=== PATIENT | male | born 1970 | race Caucasian/White ===

== ENCOUNTER 2017-01-14 19:19 | Inpatient (IN) | payer OTHER ==
--- NOTE | ~2017-01-14 | PN ---
Unit #: [id number] #: [id number] Patient: JINA LEBRON [id number] [facility] [address] [place] [address] [id number] I MR#: [id number] NAME: JINA LEBRON. ROOM: [facility] Age: 46 Sex: M Admission Date: 01/14/2017 : 1970 Attending Physician: Dario Villagomez M.D. Admitting Physician: Dario Villagomez M.D. Primary Care Physician: Venkat Guillen PROGRESS NOTES DATE 01/15/2017 DISCUSSION Mr. Jina Lebron is a 46-year-old male, seen on 01/15/2017. The patient interviewed, chart reviewed, and obtained information from the nursing staff. The patient was compliant and cooperative. Mood sad and dysphoric, flat affect, withdrawn, isolative, anxious, reported having restlessness of his legs, trouble sleeping, mood lability. REVIEW OF SYSTEMS Complete review of systems unremarkable. MENTAL STATUS EXAMINATION General appearance: Patient casually dressed. Attention span and concentration, fair. Oriented to place and person. Mood and affect, sad and dysphoric. Speech, monotone. Thought process, concrete. Association, the patient denied any thoughts of harming self or others but withdrawn, isolative, flat affect. Recent and remote memory, poor. Insight and judgment, poor. DIAGNOSES 1. Polysubstance abuse. 2. Mood disorder, NOS. 3. Rule out major depressive disorder. ASSESSMENT/PLAN Advised to start the patient on Celexa 20 mg daily and trazodone 100 mg at bedtime, Vistaril 25 mg three times a day, Requip 1 mg twice daily. We will closely monitor the patient's mood and behavior, if needed consider further adjustment of medication. Dictated by... Venkat Lora/thuy TD: 01/16/2017 07:26 JOB #: [id number] Unit #: [id number] #: [id number] Patient: JINA LEBRON PROGRESS NOTES X Dario Villagomez MD PROGRESS NOTE
--- NOTE | ~2017-01-14 | HP ---
Unit #: [id number] #: [id number] Patient: JINA BURGOS [id number] [facility] [address] [place] [address] [id number] I MR#: [id number] NAME: JINA BURGOS. ROOM: [facility] Age: 46 Sex: M Admission Date: 01/14/2017 : 1970 Attending Physician: Dario Villagomez M.D. Admitting Physician: Dario Villagomez M.D. Primary Care Physician: Rahul Barahona M.D. HISTORY AND PHYSICAL HISTORY OF PRESENT ILLNESS Jina is a 46-year-old male admitted on 01/14/[address] [place] [address] for detox from benzos and heroin as well as suicidal ideation. PAST MEDICAL HISTORY 1. Chronic obstructive pulmonary disease 2. Hypertension and spondylosis. PAST SURGICAL HISTORY None documented. SOCIAL HISTORY Reports daily use of heroin and Xanax. Smokes one pack of cigarettes daily and occasional alcohol use. He is currently and homeless. FAMILY HISTORY Noncontributory. REVIEW OF SYSTEMS CONSTITUTIONAL: No fever or chills. HEENT: Denies any sore throat, ear pain or runny nose. CARDIOVASCULAR: Denies chest pain, irregular heart rhythm or palpitations. CHEST: Denies shortness of breath or cough. No hemoptysis. GASTROINTESTINAL: Denies nausea, vomiting, diarrhea or chronic constipation. ENDOCRINE: Denies history of increased thirst or urination. No recent significant weight loss or gain. GENITOURINARY: Denies dysuria, frequency, or hematuria. SKIN: Denies any rashes. HEMATOLOGIC: Denies history of increased bleeding or bruising. MUSCULOSKELETAL: Denies any hot, swollen joints. No generalized muscle pain. NEUROLOGIC: Denies problems with vision or speech. No frequent, severe headaches. No numbness, tingling or weakness in any extremities. Denies loss of bladder or bowel control. CURRENT MEDICATIONS Lisinopril and Proventil ALLERGIES No known drug allergies. Unit #: [id number] #: [id number] Patient: JINA BURGOS PHYSICAL EXAMINATION GENERAL: Alert, oriented, in no acute distress. VITAL SIGNS: Blood pressure 158/90, heart rate 81, temperature 98.0. HEIGHT: 5 foot 8 inches. WEIGHT: 150 pounds. SKIN: Warm and dry without rash or lesion. HEENT: Normocephalic. TMs not viewed. Oral and nasal passages clear. Conjunctivae clear. PERRLA. EOMs intact. NECK: Supple without lymphadenopathy or thyromegaly. HEART: Regular rate and rhythm without murmur. LUNGS: Clear. ABDOMEN: Soft, nontender, without masses or hepatosplenomegaly. : Not done. EXTREMITIES: No evidence of cyanosis, clubbing or edema. Moves all without focal deficit. NEUROLOGICAL: Grossly within normal limits. Cranial Nerves: II: Visual melendez are intact. III, IV AND : Extraocular movements are intact. Pupils are equal, round and reactive to light. V: Facial sensation is grossly normal. VII: Facial movements and expression are normal. VIII: Auditory acuity grossly intact. IX, X: Uvula is midline. Phonation is normal. XI: Patient shrugs shoulders and turns head normally. XII: Tongue protrudes in the midline. Sensory and Motor Function: Sensory and motor sensation is grossly normal. Motor: moves all extremities well. Coordination: Gait is normal. Deep Tendon Reflexes: Intact. IMPRESSION 1. Psychiatric admission 2. Spondylosis 3. Hypertension 4. Chronic obstructive pulmonary disease RECOMMENDATIONS Psychiatric, per psychiatrist. MEDICAL: I see no contraindications to participating in facility's activities. MEDICAL PROGNOSIS Good. MEDICAL CONDITION Stable. Dictated by... Leigh Ann Gonzalez/viji TD: 01/16/2017 00:08 JOB #: [id number] Unit #: [id number] #: [id number] Patient: JINA BURGOS HISTORY AND PHYSICAL X STERLING BOURGEOIS APRN HISTORY AND PHYSICAL
--- NOTE | ~2017-01-14 | PN ---
Unit #: [id number] #: [id number] Patient: JINA BURGOS [id number] [facility] [address] [place] [address] [id number] I MR#: [id number] NAME: JINA BURGOS. ROOM: [facility] Age: 46 Sex: M Admission Date: 01/14/2017 : 1970 Attending Physician: Dario Villagomez M.D. Admitting Physician: Dario Villagomez M.D. Primary Care Physician: Venkat Guillen PROGRESS NOTES DATE OF SERVICE: 01/16/2017 DISCUSSION Mr. Jina Burgos is a 46-year-old male, seen on 01/16/2017. The patient interviewed, chart reviewed, and obtained information from nursing staff. The patient reported having trouble sleeping, withdrawn, isolative, guarded, flat affect. The patient reported unable to sleep last night. The patient's vital signs; temperature 98.1, pulse 81, and blood pressure 142/87. The patient is currently on detox protocol but denied any thoughts of harming self or others. Complete review of systems unremarkable. MENTAL STATUS EXAMINATION General appearance, the patient dressed casually. Attention span and concentration, fair. Oriented in place and person. Mood and affect, sad and dysphoric. Speech, monotone. Thought process, concrete. The patient denied any thoughts of harming self or others, but guarded and paranoid. Recent and remote memory, poor. Insight and judgment, poor. DIAGNOSES 1. Mood disorder, not otherwise specified. 2. Opioid use disorder, severe. 3. Sedative-hypnotic use disorder. ASSESSMENT/PLAN Recommending at this time to continue with current medication with a plan to increase trazodone to 200 mg at bedtime. If needed, consider further adjustment of medication. Dictated by... Dario Villagomez M.D. FLORIDALMA/nathaniel TD: 01/16/2017 19:14 JOB #: [id number] Unit #: [id number] #: [id number] Patient: JINA BURGOS PROGRESS NOTES X Dario Villagomez MD PROGRESS NOTE
--- NOTE | ~2017-01-14 | PN ---
Unit #: [id number] #: [id number] Patient: JINA LEBRON [id number] [facility] [address] [place] [address] [id number] MR#: [id number] NAME: JINA LEBRON. ROOM: [facility] Age: 46 Sex: M Admission Date: 01/14/2017 : 1970 Attending Physician: Dario Villagomez M.D. Admitting Physician: Dario Villagomez M.D. Primary Care Physician: Venkat Guillen PROGRESS NOTES DATE OF SERVICE: 01/17/2017 DISCUSSION Jina Lebron is a 46-year-old male, seen on 01/17/2017. The patient interviewed, chart reviewed, and obtained information from nursing staff. The patient was compliant and cooperative. Mood was sad, dysphoric, flat affect, guarded. The patient requested for Motrin for pain. The patient continues to be sad, dysphoric, withdrawn, isolative, flat affect. Complete review of systems unremarkable. MENTAL STATUS EXAMINATION General appearance, the patient dressed casually. Attention span and concentration, fair. Oriented in time, place, and person. Mood and affect were labile. Speech, regular rate. Thought process, goal directed. The patient denied any thoughts of harming self or others or any psychotic symptom. Recent and remote memory, poor. Insight and judgment, poor. DIAGNOSES 1. Polysubstance abuse. 2. Mood disorder, not otherwise specified. ASSESSMENT AND PLAN Advised to continue with current medication and therapeutic protocol. We will monitor response to medication and make further adjustment of medication. Dictated by... Venkat Lora/nathaniel TD: 01/17/2017 19:02 JOB #: [id number] Unit #: [id number] #: [id number] Patient: JINA LEBRON PROGRESS NOTES X Dario Villagomez MD PROGRESS NOTE
--- NOTE | ~2017-01-14 | PA ---
Unit #: [id number] #: [id number] Patient: JINA LEBRON [id number] [facility] [address] [place] [address] [id number] I MR#: [id number] NAME: JINA LEBRON. ROOM: [facility] Age: 46 Sex: M Admission Date: 01/14/2017 : 1970 Date of Assessment: 01/15/2017 Attending Physician: Dario Villagomez M.D. Admitting Physician: Dario Villagomez M.D. Primary Care Physician: Rahul Barahona M.D. PSYCHIATRIC ASSESSMENT INFORMANTS The patient reliability, fair informant and chart reliability, good. CHIEF COMPLAINT Substance abuse and depression. HISTORY OF PRESENT ILLNESS Mr. Jina Lebron is a 46-year-old male, presented with the above-mentioned complaint. The patient reports he is currently homeless, has a . The patient reported using multiple drugs and substances. Reported feeling sad, depressed, using 1 g of heroin IV, addiction to benzos, Xanax, and Klonopin 2 to 3 times a week. The patient currently endorses mild withdrawal symptoms. The patient's COWS 9, CIWA score 3. The patient reported that he is suicidal and thoughts of overdosing on heroin. The patient denied any homicidal ideation or psychotic symptom. Needing inpatient admission at this time for psychiatric stabilization. PAST PSYCHIATRIC HISTORY Remarkable for history of outpatient treatment, details unknown at this time. FAMILY HISTORY AND SOCIAL HISTORY The patient currently homeless. Family psychiatric illness unremarkable. MEDICAL HISTORY Remarkable for hypertension, COPD, chronic back pain, and emphysema. MEDICATIONS The patient is on lisinopril, albuterol, and medication for depression, details unknown at this time. ALLERGIES No known drug allergies. SUBSTANCE ABUSE HISTORY The patient uses tobacco, age of onset 8; alcohol, age of onset 8; marijuana, age of onset 6; crack cocaine, age of onset 18; opioid, age of onset 28; and prescription medication, age of onset 28. The patient reported history of blackouts, withdrawal symptom, and IV drug use. Currently, having hot and cold flash, restlessness, anxiety, abdominal cramping, muscle cramping, diaphoresis, diarrhea, depressed mood, irritability, nervousness, poor appetite, poor concentration, Unit #: [id number] #: [id number] Patient: JINA LEBRON restlessness, rhinorrhea, and sleep problem. REVIEW OF SYSTEMS HEENT: Eyes, clear. Ears, nose, mouth, and throat; clear. CARDIOVASCULAR: Unremarkable. RESPIRATORY: Unremarkable. GI: Unremarkable. : Unremarkable. SKIN: Unremarkable. LYMPH NODE: Unremarkable. NEUROLOGIC: Unremarkable. ENDOCRINE: Unremarkable. HEMATOLOGIC: Unremarkable. ALLERGIC/IMMUNOLOGIC: Unremarkable. MUSCULOSKELETAL: Muscle strength and tone, no atrophy or abnormal movement. Gait normal. MENTAL STATUS EXAMINATION CONSTITUTIONAL: Measurement of vital signs; temperature 98.0, heart rate 81, respiratory rate 18, blood pressure 158/90, height 5 feet 8 inches, and weight 150 pounds. GENERAL APPEARANCE: The patient dressed casually. The patient did not show any facial deformity. MUSCULOSKELETAL: Please see above. PSYCHIATRIC EXAMINATION Description of speech; regular rate, normal volume, and normal articulation. Description of thought process, goal directed. Description of association, intact. Description of abnormal psychotic thinking; denied any hallucination or delusions, but depression, suicidal ideation, and substance abuse. Denied any homicidal ideation. Description of the patient's judgment: Concerning everyday activity, poor. Social situation, poor. Concerning psychiatric condition, poor. Complete mental status examination; oriented in time, place, and person. Recent and remote memory, poor. Attention span and concentration, fair. Language, able to name object and repeat phrases. Fund of knowledge, aware of current event and passive vocabulary intact. Mood and affect, sad and dysphoric. Insight and judgment, fair to poor. ASSETS AND LIABILITIES Assets, the patient is articulate and able to take care of his ADL. Liability, history of depression and substance abuse. ADMITTING DIAGNOSES Psychiatric: Major depressive disorder, recurrent, severe, F33.2; opioid use disorder, severe, F11.20; and sedative hypnotic use disorder, F13.20. Secondary diagnosis: Deferred. Medical diagnoses: Hypertension, chronic obstructive pulmonary disease, chronic back pain, and emphysema. Stressors: Psychosocial stressors. PSYCHIATRIC PLAN AND TREATMENT GOAL AND DISCHARGE PLAN 1. Advised to admit the patient on the inpatient unit. Provide safe, supportive, and structured environment. Unit #: [id number] #: [id number] Patient: JINA LEBRON 2. Ordered labs; CBC, CMP, UA, and UDS. 3. Precaution for self-harm and detox monitoring. 4. The patient started on detox protocol. The patient to continue with home medication. If needed, consider further adjustment of medication. The patient to continue with Thorazine 100 mg at bedtime, Requip 1 mg b.i.d., Vistaril 25 mg t.i.d., and Neurontin 200 mg t.i.d. The patient to attend all the programing, group therapy, individual therapy, and medication management. TREATMENT GOAL To attain euthymic mood, gain insight into his problem, and learn coping skills. DISCHARGE PLAN Plan to stabilize the patient and consider followup in outpatient program. ESTIMATED LENGTH OF STAY 5 days. Dictated by... Venkat Lora/nathaniel TD: 01/15/2017 17:25 JOB #: [id number] PSYCHIATRIC ASSESSMENT X Dario Villagomez MD X PSYCHIATRIC ASSESSMENT
--- NOTE | ~2017-01-14 | DS ---
Unit #: [id number] #: [id number] Patient: JINA BURGOS [id number] [facility] [address] [place] [address] [id number] MR#: [id number] NAME: JINA BURGOS. ROOM: [facility] Age: 46 Sex: M Admission Date: 01/14/2017 : 1970 Discharge Date: 01/18/2017 Attending Physician: Dario Villagomez M.D. Primary Care Physician: Rahul Barahona M.D. DISCHARGE SUMMARY REASON FOR ADMISSION Substance abuse. DIAGNOSTIC STUDIES LABORATORY RESULTS: Remarkable for urine drug screen positive for opioid. HOSPITAL COURSE The patient was admitted to inpatient unit on 01/14/2017 and discharged on 01/18/2017. The patient was treated on the inpatient unit with chemical dependency group, expressive therapy, medication management, psychotherapy, psychoeducation. The patient responded well with the above modalities of treatment and detox protocol. Subsequently, the patient was discharged with a plan to follow up in outpatient program. DISCHARGE MEDICATIONS Lisinopril 10 mg daily for hypertension, Proventil inhaler 2 puffs 4 hours p.r.n. for shortness of air. DISCHARGE DIAGNOSES Psychiatric: 1. Mood disorder, not otherwise specified, F32.9. 2. Opioid use disorder, severe, F11.20. 3. Sedative hypnotic use disorder, F13.20. Secondary diagnosis: Deferred. Medical diagnoses: Hypertension, chronic obstructive pulmonary disease, chronic pain, emphysema. Stressors: Psychosocial stressors. DISCHARGE INSTRUCTIONS The patient to follow up in outpatient clinic as per psychosocial rehabilitation counselor. CONDITION ON DISCHARGE The patient was pleasant and cooperative. Denied any psychotic symptom or any suicidal ideation. PROGNOSIS Guarded. DIET AND ACTIVITY As tolerated. Unit #: [id number] #: [id number] Patient: JINA BURGOS Dictated by... Venkat Lora/nathaniel TD: 01/19/2017 06:51 JOB #: [id number] DISCHARGE SUMMARY X Dario Villagomez MD X DISCHARGE SUMMARY
[~2017-01-14 19:19] MED LIST: MUCINEX DM1 TAB.SR . PO; PERCOCET5/325 PO; ULTRAM PO
[2017-01-15 11:14] LABS: BASOPHIL# 0.1 X10e3 (0-0.3); BASOPHIL% 0.9 % (0-2.5); EOSINOPHIL# 0.1 X10e3 (0-0.7); EOSINOPHIL% 1.1 % (0.0-7.0); HEMATOCRIT 42.5 % (38.0-50.0); HEMOGLOBIN 13.8 gm/dL (13.0-16.0); LYMPHOCYTE# 1.5 X10e3 (1.0-3.5); LYMPHOCYTE% 22.1 % (17.0-45.0); MEAN CELL VOLUME 92.4 FL (83-96); MEAN CORPUSCULAR HEMOGLOBIN 30.1 PG (28-34); MEAN CORPUSCULAR HGB CONC 32.5 g/dL (30-36); MONOCYTE# 0.9 X10e3 (0-1.0); MONOCYTE% 12.4 % (3.0-12.0); NEUTROPHIL# 4.4 X10e3 (1.5-7.1); NEUTROPHIL% 63.5 % (40-75); PLATELET COUNT 224 X10e3 (140-420); RED CELL DISTRIBUTION WIDTH 13.8 % (11.0-15.5); WHITE BLOOD COUNT 6.9 X10e3 (4.0-10.5)
[2017-01-15 11:16] LABS: DIFF IND NO
[2017-01-15 11:30] LABS: URINE APPEARANCE CLEAR; URINE BILIRUBIN NEG (NEG); URINE BLOOD NEG (NEG); URINE COLOR YELLOW; URINE GLUCOSE NEG (NEG); URINE KETONE NEG (NEG); URINE LEUKOCYTE ESTERASE NEG (NEG); URINE NITRATE NEG (NEG); URINE PH 6.5 (5-8); URINE PROTEIN NEG (NEG); URINE SPECIFIC GRAVITY 1.021 (1.003-1.035)
[2017-01-15 11:56] LABS: THYROID STIMULATING HORMONE 0.38 uIU/ml (0.34-5.60)
[2017-01-15 11:57] LABS: ALBUMIN SERUM 3.7 g/dL (3.5-5.0); ALKALINE PHOSPHATASE 73 U/L (32-92); ALT (SGPT) 24 U/L (10-40); AST (SGOT) 23 U/L (10-42); BILIRUBIN,TOTAL 0.5 mg/dL (0.2-2.0); BLOOD UREA NITROGEN 10 mg/dL (9-23); BUN/CREATININE RATIO 14.28; CALCIUM SERUM 9.2 mg/dL (8.4-10.2); CARBON DIOXIDE 25 mmol/L (22-31); CHLORIDE 106 mmol/L (100-111); CREATININE SERUM 0.7 mg/dL (0.6-1.4); GLOM FILT RATE Estimated ABOVE60 mL/min (>60); GLUCOSE FASTING 113 mg/dL (70-110); POTASSIUM 4.4 mmol/L (3.5-5.1); PROTEIN TOTAL SERUM 6.4 g/dL (6.0-8.3); SODIUM 140 mmol/L (135-145)
[2017-01-15 12:01] LABS: AMPHETAMINE NEG (NEG); BARBITURATES NEG (NEG); BENZODIAZEPINES NEG (NEG); COCAINE NEG (NEG); MARIJUANA NEG (NEG); OPIATES POS (NEG); TRICYCLIC ANTIDEPRESSANTS NEG (NEG); U METHADONE NEG (NEG)
[2017-01-15 12:03] LABS: FREE THYROXIN (T4) 0.96 ng/dL (0.58-1.64)
== END 2017-01-18 09:55 | DRG 897 ==
LOC: P2S 19:19 → POF 01-16 14:07 → P2S 01-16 14:10
PROVIDERS: Psychiatry & Neurology Psychiatry
PROC: HZ2ZZZZ Detoxification Services for Substance Abuse Treatment (ICD-10-PCS; principal; 2017-01-14)
DX: F11.20 Opioid dependence, uncomplicated (principal); R45.851 Suicidal ideations; F33.2 Major depressive disorder, recurrent severe without psychotic features; F13.20 Sedative, hypnotic or anxiolytic dependence, uncomplicated; J44.9 Chronic obstructive pulmonary disease, unspecified; I10 Essential (primary) hypertension; F17.210 Nicotine dependence, cigarettes, uncomplicated; Z59.0 Homelessness; M47.9 Spondylosis, unspecified; F39 Unspecified mood [affective] disorder; G89.29 Other chronic pain
CPT/HCPCS: 80053; 80307; 81003; 84439; 84443; 85025; 86592

== ENCOUNTER 2017-03-09 08:30 | Inpatient (IN) | payer OTHER ==
--- NOTE | ~2017-03-09 | CO ---
Unit #: [id number] #: [id number] Patient: JINA BURGOS [id number] [address] [address] [id number] MR#: [id number] NAME: JINA BURGOS. ROOM: [facility] Age: 47 Sex: M Admission Date: 03/09/2017 : 1970 Attending Physician: Aleta Moore M.D. Primary Care Physician: Rahul Barahona M.D. Consultation Date: 03/09/2017 CONSULTATION REPORT REASON FOR CONSULTATION ICU management. HISTORY OF PRESENT ILLNESS This is a very pleasant 47-year-old with a past medical history significant for chronic obstructive pulmonary disease, extensive smoking and a history of IV drug abuse with heroin. The patient was brought to the emergency room with progressive shortness of breath and cough, sometimes productive of yellowish sputum for the last few days. Apparently the patient was recently discharged from detox on 01/18/2017 with substance abuse and mood disorder. Per record, the patient injected IV heroin yesterday times two in the afternoon. The patient smokes one pack per day for the last 35 years. He takes inhalers at home, but no oxygen. He is willing to quit smoking, as he stated. PAST MEDICAL HISTORY 1. Chronic obstructive pulmonary disease. 2. Hypertension. 3. Polysubstance abuse. PAST SURGICAL HISTORY 1. Tonsillectomy. 2. Left shoulder surgery. SOCIAL HISTORY The patient smokes one pack per day for the last 35 years. He is currently and homeless. He is an IV drug addict and recently had a detox. Again, he had recurrence with heroin abuse yesterday. FAMILY HISTORY Hypertension. ALLERGIES No known drug allergies. HOME MEDICATIONS 1. Lisinopril. 2. Proventil. REVIEW OF SYSTEMS Twelve point review of systems was obtained and negative except for what was mentioned in history of present illness. PHYSICAL EXAMINATION Unit #: [id number] #: [id number] Patient: JINA BURGOS GENERAL: The patient is in respiratory distress and in pain. VITALS: Temperature 98.1, pulse 87, respiratory rate 22, blood pressure 105/62, O2 saturations 93% on 4 liters nasal cannula. HEENT: Atraumatic, normocephalic. Extraocular muscles intact. NECK: Supple. No jugular venous distension. No lymphadenopathy. CHEST: Diffuse wheezing and bilateral rhonchi. HEART: S1 and S2. No murmur, gallop or rub. ABDOMEN: Soft and nontender. Bowel sounds positive. No hepatosplenomegaly. EXTREMITIES: No edema or cyanosis. SKIN: No rashes. NEUROLOGIC: [employer] SPECIALIST, awake, alert and oriented times three. No focal motor/sensory deficits. DIAGNOSTIC STUDIES IMAGING: Chest x-ray consistent with pneumonia. LABORATORY: pO2 60, creatinine 1.4 now, sodium 131, white blood cell count 11.4. ASSESSMENT 1. Hypoxic respiratory failure. 2. Septic shock. 3. Pneumonia. 4. Polysubstance abuse. 5. Acute kidney injury. 6. Rhabdomyolysis. 7. Hypertension. PLAN 1. The patient is status post IV hydration per sepsis guidelines. Lactic acid is already trending down. 2. Urine output is adequate. 3. Cefepime and azithromycin, but he may need IV vancomycin given his history of IV drug abuse. 4. Bronchodilator and mucolytics. 5. IV steroids and antitussive. 6. Follow cultures. 7. DVT prophylaxis. I would like to thank you for allowing me to be part of this patient's care. Dictated by... Venkat Goodwin TD: 03/10/2017 09:28 JOB #: [id number] Unit #: [id number] #: [id number] Patient: JINA BURGOS CONSULTATION REPORT Page 1 of 1 X BELINDA LYON MD CONSULTATION REPORT
--- NOTE | ~2017-03-09 | CO ---
Unit #: [id number] #: [id number] Patient: JINA BURGOS [id number] [address] [place], [place] [address] [id number] MR#: [id number] NAME: JINA BURGOS. ROOM: 579 Age: 47 Sex: M Admission Date: 03/09/2017 : 1970 Attending Physician: Aleta Moore M.D. Primary Care Physician: Rahul Barahona M.D. CONSULTATION REPORT REASON FOR CONSULT Low ejection fraction and shortness of breath. HISTORY OF PRESENT ILLNESS This is a pleasant 47-year-old male, with a history of COPD, mood disorder, and IV drug abuse with heroin. The patient also reports he has used methamphetamines in the past. He initially was admitted secondary to complaints of shortness of breath, which woke him from sleep and worsening dyspnea on exertion. He reports to me that he also has episodes of substernal chest pain with radiation down into his left arm. This occurs with activity and is relieved with rest. On initial arrival to the emergency room, the patient was found to be hypotensive and have a lactic acid of 6.2. His chest x-ray also showed bilateral opacities, suspicious for pneumonia. The patient was started on antibiotic therapy as well as IV fluids and treated for septic shock and pneumonia as well as acute respiratory failure and acute kidney injury. He was sent to the ICU and did transiently require some pressor support. The patient was transferred out of ICU to the floor today. We were asked to see secondary to low ejection fraction. 2D echocardiogram was performed, which showed an EF of 35% to 40%, impaired relaxation, mildly enlarged right ventricle with moderately reduced RV function. No masses. Initial point of care troponins have been negative. EKG shows normal sinus rhythm, rate of 91 beats per minute. No acute ischemic change. QTc interval of 489 milliseconds. At present, he is resting in bed. He appears comfortable. He states he did use heroin approximately 2 days ago and states he uses frequently, usually about every other day. He does continue to smoke approximately 1 pack a day and has done so for the past 35 years. The patient also reports he dabbles with methamphetamine. He also tells me he is a reformed heavy alcohol user who was drinking about a pint of whiskey daily from 1993 to 2001, but has been reformed from alcohol for the last 8 years and states he was recently in drug rehab. PAST MEDICAL HISTORY 1. Hypertension. 2. Chronic back pain. 3. Mood disorder. 4. Polysubstance abuse. 5. IV heroin use. 6. Reformed alcoholism. 7. COPD. PAST SURGICAL HISTORY Unit #: [id number] #: [id number] Patient: JINA BURGOS Tonsillectomy and left shoulder surgery. SOCIAL HISTORY The patient states currently he is living in different places. He smokes one pack of cigarettes per day and has done so for approximately 35 years. He does admit to IV heroin use as well as methamphetamines. He is a reformed alcoholic. He used to drink about a pint of whiskey daily, was a heavy drinker from 1993 to 2001, has been a reformed alcoholic for the last 8 years. FAMILY HISTORY Positive for mother with hypertension and a grandfather with [place]. ALLERGIES No known drug allergies. HOME MEDICATIONS Lisinopril 10 mg p.o. daily, Proventil inhalation 1 puff q.6 hours p.r.n. REVIEW OF SYSTEMS Negative essentially except for what was stated above in the HPI. PHYSICAL EXAMINATION GENERAL: This is a pleasant 47-year-old male, in no acute distress. VITAL SIGNS: Temperature 98.2, respiratory rate 16 to 18, pulse is 92 to 100, blood pressure is running 84/66 to 96/67. HEENT: Head; atraumatic and normocephalic. Pupils are equal and round. Extraocular movements are intact. Mucous membranes are moist. NECK: Trachea is midline. No JVD. No carotid bruits. Normal carotid upstrokes. LUNGS: Scattered rhonchi. Inspiratory and expiratory bilaterally. Scattered wheezing. No rales are noted. HEART: S1, S2. No murmurs, gallops, or rubs. ABDOMEN: Soft, nontender, nondistended. Bowel sounds are present. EXTREMITIES: No clubbing, cyanosis, or edema. Pulses are palpable. NEUROLOGIC: He is awake, alert, and oriented. Moves all extremities equally. Follows commands with ease. DIAGNOSTIC STUDIES IMAGING STUDIES: Chest x-ray shows bilateral opacities with lower lobe predominance, left greater than right, suspicious for pneumonia; trace to small left effusion. LABORATORY RESULTS: Sodium 131, potassium 4.6, chloride 106, CO2 of 18, BUN 26, creatinine 1.4, glucose 176. Hemoglobin 11.0, hematocrit 34.2, WBCs 11.4, platelet count 142. Lactic acid on admission was 6.2, repeat is 2.9. Troponin has been negative, point of care. BNP is 218. His urine drug tox was positive for amphetamines and opioids. CARDIOVASCULAR STUDIES: EKG shows normal sinus rhythm, 91 beats per minute, QTc interval 489 msec. No acute ischemic changes noted. IMPRESSION 1. Septic shock. 2. Bilateral pneumonia. 3. Severe chronic obstructive pulmonary disease. 4. Polysubstance abuse with history of IV heroin as well as Unit #: [id number] #: [id number] Patient: JINA BURGOS methamphetamines. 5. Hypertension. 6. Rule out coronary artery disease with ischemic heart disease. PLAN At this point, the patient's lungs are his primary issue. However, he does have risk factors for coronary artery disease and he does have complaints of typical angina. He will need ischemic workup once his pulmonary status is improved. We will plan tentatively on walking [employer] on Monday. He will also be started on a low-dose beta madyson despite borderline low blood pressure. Per Dr. Garza's orders, he will also be started on a daily aspirin as well as statin therapy. We will check fasting lipid profile in the a.m. It is important that he has cardiac catheterization to rule out underlying ischemic heart disease. His SHIRA inhibitor has currently been on hold secondary to his elevated creatinine. Further recommendations to follow pending the outcome of the Lexiscan Cardiolite. Dictated by... Jenn Jay A.P.R.N. for Venkat Magana/nathaniel TD: 03/11/2017 06:19 JOB #: [id number] CONSULTATION REPORT Page 1 of 1 X Jenn Jay APRN X CONSULTATION REPORT
--- NOTE | ~2017-03-09 | TH ---
Unit #: [id number] #: [id number] Patient: JINA BURGOS [id number] [address] [address] [id number] I MR#: [id number] NAME: JINA BURGOS. : 1970 SEX: M STUDY DATE/TIME: UNIT: [facility] ROOM: 565 STUDY DESCRIPTION: Dobutamine stress - nuclear Attending Physician: Gianni Trejo M.D. Primary Care Physician: Rahul Barahona M.D. CARDIOLOGY REPORT PROCEDURE PERFORMED Dobutamine Cardiolite stress test - Nuclear portion. PROCEDURE Using technetium 99m-labeled Cardiolite, rest and stress SPECT images were obtained. Multiple SPECT images were obtained in various views, including horizontal and vertical long axis and short axis views of the left ventricle. Images were obtained by gated SPECT method. The patient was administered 11.09 mCi of Cardiolite at rest. The patient was administered 35.4 mCi of Cardiolite at peak dobutamine infusion. On the stress images, there is normal perfusion noted. The rest images show normal perfusion. Comparing the rest and stress images, there is no stress-induced ischemia noted. The left ventricular ejection fraction is calculated to be 73%. There is no focal wall motion abnormality seen. CONCLUSION 1. No stress-induced ischemia noted. 2. The left ventricular ejection fraction is calculated to be 73%. 3. There is no focal wall motion abnormality seen. 4. Normal dobutamine Cardiolite stress test. Dictated by... Venkat Youssef TD: 03/16/2017 13:21 JOB #: [id number] CARDIOLOGY REPORT Page 1 of 1 X Jessica Avila MD <ELECTRONICALLY SIGNED> 05/27/17 1429 CARDIOLOGY REPORT
--- NOTE | ~2017-03-09 | TOC ---
Unit #: [id number] #: [id number] Patient: IJNA BURGOS [id number] [facility] [address]. [place], [place] [address] [id number] I MR#: [id number] NAME: JINA BURGOS. ROOM: 579 Age: 47 Sex: M Admission Date: 03/09/2017 : 1970 Attending Physician: Aleta Moore M.D. Primary Care Physician: Rahul Barahona M.D. TRANSFER OF CARE SUMMARY DATE March 13, 2017. DIAGNOSES ON ADMISSION 1. Septic shock. 2. Pneumonia. 3. IV drug abuse. CURRENT DIAGNOSES 1. Bilateral pneumonia. 2. Acute respiratory failure. 3. Acute exacerbation of chronic obstructive pulmonary disease. 4. Congestive heart failure. 5. Acute kidney injury, resolved. 6. IV drug abuse. HOSPITAL COURSE A 47-year-old patient was admitted to [facility] with pneumonia. Details are as per admission H and P. Bilateral pneumonia: The patient was initiated on IV antibiotics. Patient has responded well to treatment and is afebrile. Acute respiratory failure: Patient is requiring oxygen currently. COPD exacerbation: The patient was treated with IV Solu-Medrol and was followed by pulmonary. Chest pain: The patient has chest pain which is atypical. The patient was seen by cardiology in consultation who will perform a stress test today. IV drug abuse: Patient was seen by Dr. Villagomez in consultation. The patient's further hospital course will be dictated by my partner. Dictated by... Venkat Haines/je Unit #: [id number] #: [id number] Patient: JINA BURGOS TD: 03/13/2017 09:42 JOB #: [id number] TRANSFER OF CARE SUMMARY Page 1 of 1 X Juan Blair MD X TRANSFER OF CARE SUMMARY
--- NOTE | ~2017-03-09 | EKG ---
PATIENT: JINA BURGOS UNIT #: [id number] Ventricular Rate: 59 BPM Atrial Rate: 59 BPM P-R Interval: 118 ms QRS Duration: 94 ms Q-T Interval: 420 ms QTC Calculation(Bezet): 415 ms P [place]: 52 degrees Calculated R [place]: 48 degrees Calculated T [place]: 24 degrees Diagnosis Line: Sinus bradycardia Diagnosis Line: RSR' or QR pattern in V1 suggests right Diagnosis Line: ventricular conduction delay Diagnosis Line: Nonspecific ST abnormality Diagnosis Line: Abnormal ECG Diagnosis Line: When compared with ECG of 13-MAR-2017 18:02, Diagnosis Line: Sinus rhythm has replaced Atrial fibrillation Diagnosis Line: Vent. rate has decreased BY 143 BPM Diagnosis Line: RSR' pattern in V1 is now Present Diagnosis Line: Non-specific change in ST segment in Inferior Diagnosis Line: leads Diagnosis Line: ST no longer depressed in Anterolateral leads Diagnosis Line: Confirmed by EM BARBER MD ([id number]) on 03/16/2017 Diagnosis Line: 11:10:36 PM INTERPRETING MD: ELISABETH LÓPEZ
--- NOTE | ~2017-03-09 | CO ---
Unit #: [id number] #: [id number] Patient: JINA LEBRON [id number] [facility] [address]. [place], [place] [address] [id number] I MR#: [id number] NAME: JINA LEBRON. ROOM: 5 Age: 47 Sex: M Admission Date: 03/09/2017 : 1970 Attending Physician: Gianni Trejo M.D. Primary Care Physician: Rahul Barahona M.D. Consultation Date: 03/14/2017 CONSULTATION REPORT REASON FOR CONSULTATION Followup. DISCUSSION Mr. Jina Lebron is a 47-year-old male seen at [facility]. Patient continues to report having problem with the anxiety and pain. Patient tolerating medication fairly well. Patient was prescribed medication of opiate withdrawal. Currently on medications such as Desyrel, Neurontin, and Vistaril. Patient denied any suicidal or homicidal ideation. Denied any psychotic symptoms. Patient's vital signs: 98.1, 71, 18, 163/104, and oxygen saturation 99%. REVIEW OF SYSTEMS Complete review of systems is unremarkable, except as mentioned above. MENTAL STATUS EXAMINATION GENERAL APPEARANCE: Patient dressed in hospital attire. Lying comfortably in bed in appropriate position. ATTENTION SPAN AND CONCENTRATION: Fair. SPEECH: Rapid in rate and somewhat pressured. ORIENTATION: Oriented in time, place, and person. MOOD AND AFFECT: Labile. THOUGHT PROCESS: Coherent to circumstantial. THOUGHT CONTENT: Patient denied any thoughts of harming self or others. RECENT AND REMOTE MEMORY: Fair. LANGUAGE: Intact. FUND OF KNOWLEDGE: Fair. INSIGHT AND JUDGEMENT: Fair to slightly impaired. DIAGNOSES PSYCHIATRIC: Opiate use disorder, severe, F11.20. ASSESSMENT/PLAN 1. Supportive psychotherapy and psychoeducation provided to patient. 2. Educated about benefits and side effects of medication and course and prognosis of illness. 3. If needed, consider further adjustment of medication. 4. We will continue to follow. Please feel free to call if any questions. Telephone number . Unit #: [id number] #: [id number] Patient: JINA LEBRON Dictated by... Dario Villagomez M.D. FLORIDALMA/isabel TD: 03/16/2017 07:38 JOB #: [id number] CONSULTATION REPORT Page 1 of 1 X Dario Villagomez MD CONSULTATION REPORT
--- NOTE | ~2017-03-09 | CO ---
Unit #: [id number] #: [id number] Patient: JINA LEBRON [id number] [address] [address] [id number] I MR#: [id number] NAME: JINA LEBRON. ROOM: 565 Age: 47 Sex: M Admission Date: 03/09/2017 : 1970 Attending Physician: Gianni Trejo M.D. Primary Care Physician: Rahul Barahona M.D. CONSULTATION REPORT DATE OF SERVICE 03/15/17 REASON FOR CONSULTATION Followup. DISCUSSION Mr. Jina Lebron is a 47-year-old male seen in room 555, bed one, on 03/15/17. The patient dressed in hospital attire. The patient's room was moved and patient has a sitter. Patient reported acting differently at night according to the staff. The patient has possibly used some drugs and causing him to act differently. Possible use of drugs while in the hospital. The patient, however, denied that. The patient has a strong history of substance abuse, history of opiate abuse. Patient's vital signs: 98.0, 70, respiration 15, blood pressure 156/95. The patient continues to report having problem with anxiety, pain. The patient denied any suicidal or homicidal ideation, denied any psychotic symptom. Complete review of systems is unremarkable except for anxiety and pain. MENTAL STATUS EXAMINATION VITAL SIGNS: Please see above. GENERAL APPEARANCE: Patient dressed in hospital attire. ATTENTION SPAN AND CONCENTRATION: Poor. SPEECH: Rapid in rate. ORIENTATION: Oriented in time, place and person. MOOD AND AFFECT: Labile. THOUGHT PROCESS: Circumstantial. THOUGHT CONTENT: Guarded, paranoid. RECENT AND REMOTE MEMORY: Poor. LANGUAGE: Intact. FUND OF KNOWLEDGE: Fair. INSIGHT AND JUDGMENT: Fair to poor. DIAGNOSIS Psychiatric: 1. Opiate use disorder, moderate, F11.20. 2. Anxiety disorder, NOS, F40.01. 3. Mood disorder, NOS, F32.9. ASSESSMENT/PLAN 1. Supportive psychotherapy and psychoeducation provided to patient. 2. Educated about benefits and side effects of medication and course and prognosis of illness. 3. I agree with the plan to continue with the sitter for patient's Unit #: [id number] #: [id number] Patient: JINA LEBRON safety. The patient was advised not to use any medications on his own. The patient was explained all the medications I have ordered. If needed, we will make further adjustment of medication. Please feel free to call if any questions, telephone number, . Dictated by... Venkat Lora/page TD: 03/16/2017 07:46 JOB #: [id number] CONSULTATION REPORT Page 1 of 1 X Dario Villagomez MD X CONSULTATION REPORT
--- NOTE | ~2017-03-09 | CR72 ---
[facility] A Service of [facility] RADIOLOGY TEXT RESULTS PATIENT: JINA BURGOS LOCATION: CICCU3 CICCU3-18 : [birth year] UNIT #: [id number] AGE: [address]: GELA RANDALL MD SEX: M ORDER DR: [id number] [facility] [address]. [place], [place] [address] [id number] E MR#: [id number] Acc #: [id number] NAME: JINA BURGOS. : 1970 SEX: M STUDY DATE/TIME: 03/09/2017 9:05 UNIT: [facility] ROOM: STUDY DESCRIPTION: CR Chest Single View Portable Attending Physician: Sagar Miller M.D. Ordering Physician: Taylor Ly P.A.-C. Primary Care Physician: Rahul Barahona M.D. MEDICAL IMAGING REPORT This report is preliminary unless electronic signature is present EXAM Frontal chest, 03/09/2017. INDICATION 47-year-old male with shortness of air, congestion. Symptoms began today. No history of tobacco abuse, hypertension. TECHNIQUE Frontal chest. COMPARISON STUDIES No comparisons. FINDINGS Cardiac silhouette within normal limits for technique. Vascularity is unremarkable. Lung volumes are low. Patchy opacities in the left lung base suspicious for pneumonia. Trace left effusion. There are also patchy opacities in the mid and lower lung zone on the right to a lesser extent suspicious for atelectasis or pneumonia. No pneumothorax. Follow up to clearing recommended. IMPRESSION Bilateral opacities with a lower lobe predominance, left greater than right, suspicious for pneumonia. Trace to small left effusion. Follow up to clearing is recommended. We have no comparisons. STAT * RESULT Dictated by... Norris Mcdonald M.D. [facility] A Service of [facility] RADIOLOGY TEXT RESULTS PATIENT: JINA BURGOS LOCATION: [facility] CICCU3-18 : [birth year] UNIT #: [id number] AGE: [address]: GELA RANDALL MD SEX: M ORDER DR: THIS IS AN ELECTRONICALLY VERIFIED REPORT Norris Mcdonald M.D. at 03/09/2017 5:31 PM Renetta TD: 03/09/2017 09:52 JOB #: [id number] MEDICAL IMAGING REPORT Page 1 of 1 COPY
--- NOTE | ~2017-03-09 | CO ---
Unit #: [id number] #: [id number] Patient: JINA LEBRON [id number] [facility] [address]. [place], [place] [address] [id number] I MR#: [id number] NAME: JINA LEBRON ROOM: 565 Age: 47 Sex: M Admission Date: 03/09/2017 : 1970 Attending Physician: Gianni Trejo M.D. Primary Care Physician: Rahul Barahona M.D. Consultation Date: 03/16/2017 CONSULTATION REPORT REASON FOR CONSULTATION Followup. DISCUSSION Mr. Jina Lebron is a 47-year-old male seen in room 565 bed-1 on 03/16/17 at [facility]. Patient was compliant, cooperative, redirectable, able to (1) . Patient denied any agitation, denied any suicidal or homicidal ideation nor any psychotic symptoms. Vital signs - 98.0, 107, 20, 150/94. Oxygen saturation 95%. health care social worker is currently working on discharge planning. Complete review of systems is unremarkable. MENTAL STATUS EXAMINATION GENERAL APPEARANCE: Patient dressed casually, thin built, dressing in hospital attire. Attention span and concentration fair. Speech - regular rate, coherent. Oriented in time, place and person. Mood and affect labile. Thought process coherent. Thought content - patient denied any thoughts of harming self or others or any psychotic symptoms. Recent and remote memory fair to poor. Language - fair. Fund of knowledge fair. Insight and judgment fair to slightly impaired. DIAGNOSIS PSYCHIATRIC: 1. Opiate use disorder, moderate - F11.20 2. Anxiety disorder, not otherwise specified - 40.01 3. Mood disorder, not otherwise specified - F32.9 ASSESSMENT/PLAN 1. Supportive psychotherapy and psychoeducation provided to patient. 2. Educated about benefits and side effects of medication and course and prognosis of illness. 3. Advised to continue with current medication and make further adjustment of medication if needed. Please feel free to call if any questions. Telephone number [phone]. Dictated by... Dario Villagomez M.D. [facility]/padmini Unit #: [id number] #: [id number] Patient: JINA LEBRON TD: 03/17/2017 10:59 JOB #: [id number] CONSULTATION REPORT Page 1 of 1 X Dario Villagomez MD CONSULTATION REPORT
--- NOTE | ~2017-03-09 | CT57 ---
[facility] A Service of [facility] RADIOLOGY TEXT RESULTS PATIENT: JINA BURGOS LOCATION: [facility] 579-01 : [birth year] UNIT #: [id number] AGE: [address]: Gianni Trejo MD SEX: M ORDER DR: [id number] [facility] [address] [place], [place] [address] [id number] I MR#: [id number] Acc #: [id number] NAME: JINA BURGOS. : 1970 SEX: M STUDY DATE/TIME: 03/13/2017 14:44 UNIT: [facility] ROOM: [facility] STUDY DESCRIPTION: CT Chest Wo Cont Attending Physician: Juan Blair M.D. Ordering Physician: Meme Martinez M.D. Primary Care Physician: Rahul Barahona M.D. MEDICAL IMAGING REPORT This report is preliminary unless electronic signature is present EXAM CT of the chest without contrast 03/13/2017 HISTORY Chest pain radiating to the back, shortness of breath and cough for [address] images were obtained from the thoracic inlet through the dome of the diaphragm. No intravenous contrast material was administered. This CT exam was performed with one or more of the following radiation dose reduction techniques: automatic exposure control, adjustment of mA and/or kV according to patient size, and iterative reconstruction. FINDINGS Background emphysematous changes are noted. Patient has patchy multifocal infiltrates seen within both lungs. These are in an apical predominant distribution. There is probably trace left pleural effusion as well as some bibasilar atelectasis. There is no pericardial effusion. The left lobe of the thyroid gland is either atrophic or absent. Trachea and esophagus are within normal limits. Thoracic aorta measures within normal size limits. There are coronary artery calcifications. Mediastinal lymph nodes really do not appear pathologically enlarged. Images through the upper abdomen do not demonstrate any acute abnormalities. Review of bony windows does not demonstrate any aggressive osseous abnormalities. This patient has bilateral second rib fractures noted anteriorly as well as a right fourth rib fracture and furthermore, there is also a sternal fracture. I suspect perhaps this is related to prior chest compressions. Correlation with history is suggested. There is some mild stranding overlying the sternum. No aggressive osseous abnormalities are seen. No definite pneumothorax is identified. [facility] A Service of [facility] RADIOLOGY TEXT RESULTS PATIENT: JINA BURGOS LOCATION: [facility] 579-01 : [birth year] UNIT #: [id number] AGE: [address]: Gianni Trejo MD SEX: M ORDER DR: IMPRESSION This patient has patchy ground-glass infiltrates seen within the upper lobes bilaterally. Potentially this could reflect an infectious or inflammatory process, however the patient is noted to have bilateral anterior rib fractures as well as a sternal fracture, please correlate with any history of recent chest compressions which could certainly account for this finding. In that setting the infiltrates seen throughout the upper lobes may simply reflect some pulmonary contusion. No pneumothorax is identified. Patient does have a trace left pleural effusion. Given background emphysematous changes I would suggest a short-term CT followup to document resolution of the infiltrates. Dictated by... Lenore Begum M.D. THIS IS AN ELECTRONICALLY VERIFIED REPORT Lenore Begum M.D. at 03/14/2017 4:58 PM LILIANA/kristin TD: 03/13/2017 18:31 JOB #: [id number] MEDICAL IMAGING REPORT Page 1 of 1 COPY
--- NOTE | ~2017-03-09 | EKG ---
PATIENT: JINA BURGOS UNIT #: [id number] Ventricular Rate: 202 BPM Atrial Rate: 208 BPM QRS Duration: 88 ms Q-T Interval: 212 ms QTC Calculation(Bezet): 388 ms Calculated R [place]: 49 degrees Calculated T [place]: 47 degrees Diagnosis Line: Atrial fibrillation with rapid ventricular Diagnosis Line: response Diagnosis Line: Nonspecific ST abnormality Diagnosis Line: Abnormal ECG Diagnosis Line: When compared with ECG of 09-MAR-2017 08:59, Diagnosis Line: Atrial fibrillation has replaced Sinus rhythm Diagnosis Line: Vent. rate has increased BY 111 BPM Diagnosis Line: ST now depressed in Anterolateral leads Diagnosis Line: Confirmed by SHANTANU LYONS MD ([id number]) on Diagnosis Line: 03/13/2017 11:32:17 PM INTERPRETING MD: ALEN
--- NOTE | ~2017-03-09 | CO ---
Unit #: [id number] #: [id number] Patient: JINA LEBRON [id number] [facility] [address] [place], [place] [address] [id number] MR#: [id number] NAME: JINA LEBRON. ROOM: 579 Age: 47 Sex: M Admission Date: 03/09/2017 : 1970 Attending Physician: Aleta Moore M.D. Primary Care Physician: Rahul Barahona M.D. Consultation Date: 03/12/2017 CONSULTATION REPORT REASON FOR CONSULTATION History of substance abuse, anxiety, depression. HISTORY OF PRESENT ILLNESS Mr. Jina Lebron is a 47-year-old white male seen in room 579 bed 1 on 03/12/[address] [facility]. Patient was admitted in septic shock and pneumonia. Patient has a history of mood disorder, opioid abuse, sedative, hypnocystic use disorder. Patient was last admitted at [facility] on January 18, 2017 with abovementioned complaint. Patient dressed casually in hospital attire, sitting comfortably in bed, made good eye contact, seemed anxious, nervous, reported having withdrawal from opiates. Patient reported sever anxiety, trouble sleeping, mood lability but denied any suicidal or homicidal ideation, denied any psychotic symptom. PAST PSYCHIATRIC HISTORY Past psychiatric history is remarkable for a history of recent admission at [facility] with opiate abuse on January 18, 2017. No history of any suicide attempt. PAST MEDICAL HISTORY AND MEDICATION HISTORY Remarkable for a history of COPD, hypertension. Medication: Lisinopril and Proventil. FAMILY HISTORY AND SOCIAL HISTORY Patient has a good support from family. No history of abuse. History of substance abuse as mentioned above. REVIEW OF SYSTEMS A complete review of systems is unremarkable except as mentioned above. MENTAL STATUS EXAMINATION VITAL SIGNS: Temperature 98.1, heart rate 80, respirations 22, blood pressure 153/104, oxygen saturation 92%. GENERAL APPEARANCE: Patient dressed casually in hospital attire, lying comfortably in bed. ATTENTION SPAN AND CONCENTRATION: Fair. SPEECH: Rapid in rate. ORIENTATION: Oriented in time, place and person. MOOD AND AFFECT: Labile. THOUGHT PROCESS: Circumstantial. THOUGHT CONTENT: Patient denied any thoughts of harming self or others but somewhat guarded. Unit #: [id number] #: [id number] Patient: JINA LEBRON MEMORY: Recent and remote memory fair. LANGUAGE: Intact. FUND OF KNOWLEDGE: Fair. INSIGHT AND JUDGMENT: Fair to slightly impaired. DIAGNOSES PSYCHIATRIC: 1. Opiate use disorder, moderate, F11.20. 2. Anxiety disorder, not otherwise specified, F40.01. 3. Mood disorder, not otherwise specified, F32.9. SECONDARY: Deferred. MEDICAL: Please refer to H and P. STRESSORS Psychosocial stressors. ASSESSMENT/PLAN 1. Supportive psychotherapy and psychoeducation provided to patient. 2. Educated about benefits and side effects of medication and course and prognosis of illness. 3. Advised to continue with current medication. Currently on Xanax 0.5 mg t.i.d. 4. Advised Vistaril 25 mg t.i.d. for anxiety and trazodone 100 mg q.h.s. for sleep. 5. We will continue to follow and if needed will make further adjustment to medication. Please feel free to call if any question, telephone number [phone]. Dictated by... Dario Villagomez M.D. FLORIDALMA/daniella TD: 03/12/2017 15:58 JOB #: [id number] CONSULTATION REPORT Page 1 of 1 X Dario Villagomez MD CONSULTATION REPORT
--- NOTE | ~2017-03-09 | HP ---
Unit #: [id number] #: [id number] Patient: JINA BURGOS [id number] [address] [address] [id number] I MR#: [id number] NAME: JINA BURGOS. ROOM: 23742 Age: 47 Sex: M Admission Date: 03/09/2017 : 1970 Attending Physician: Tg Fernández M.D. Primary Care Physician: Rahul Barahona M.D. HISTORY AND PHYSICAL CHIEF COMPLAINT Shortness of breath. HISTORY OF PRESENT ILLNESS The patient is a 47-year-old male with a history of chronic obstructive pulmonary disease and IV drug abuse with heroin. The patient was brought to the emergency room with shortness of breath. The patient woke up this morning at 4 o'clock with worsening shortness of breath and could not breathe. The patient was recently discharged from detox on 01/18/2017 with substance abuse and mood disorder and opioid use disorder and sedative hypnotic disorder. The patient injected IV heroin yesterday times two in the afternoon. The patient currently smokes a pack of cigarettes daily. The patient had a similar presentation a year ago at the [facility] with rhinovirus. The patient complains of nonproductive cough. Denies any fever, chills. The patient was found to be septic with a blood pressure in the range of 95/50 and saturating 81% on room air. The patient is being admitted for the above reasons. PAST MEDICAL HISTORY 1. History of chronic obstructive pulmonary disease. 2. Hypertension. PAST SURGICAL HISTORY 1. History of tonsillectomy. 2. Left shoulder surgery. SOCIAL HISTORY The patient reports that he is (1) . He smokes one pack of cigarettes daily and occasional alcohol. He is currently and homeless. FAMILY HISTORY Reviewed and none. ALLERGIES No known drug allergies. HOME MEDICATIONS 1. Lisinopril. 2. Proventil. REVIEW OF SYSTEMS Fourteen point review of systems was performed and only pertinent positive findings are described above. The remaining are negative. Unit #: [id number] #: [id number] Patient: JINA BURGOS PHYSICAL EXAMINATION GENERAL: The patient is sitting on the bed, not in acute distress. VITALS: Temperature 97, pulse 92, respiratory rate 24, blood pressure 94/50, saturating 81% on room air. HEENT: Head atraumatic, normocephalic. Pupils equal, round and reactive to light and accommodation. Extraocular movements are intact. Dry mucous membranes. NECK: Supple. LUNGS: Decreased air entry at the bases. Positive for coarse breath sounds, rales and rhonchi. HEART: Regular rate and rhythm. Tachycardic. ABDOMEN: Soft. Positive bowel sounds. EXTREMITIES: No cyanosis. No clubbing. Positive for IV track garcia. NEUROLOGIC: Awake, alert and oriented. No gross focal motor deficits. DIAGNOSTIC STUDIES IMAGING: Chest x-ray shows bilateral opacities with lower lobe predominance, left greater than right, suspicious for pneumonia. Trace to small left effusion. Follow up to clearing is recommended. LABORATORY: ABG shows pH 7.3, pCO2 32, pO2 60, bicarb 18, saturations 88.5. Glucose 125, BUN 25, creatinine 3.3, sodium 134, potassium 3.2, chloride 99, bicarb 19, AST 46, ALT 35, alkaline phosphatase 62. CK 746, BNP 218, lactic acid 6.2. White blood cell count 6.2, hemoglobin 13.9, hematocrit 43.6, platelets 216, neutrophils 77.9. CARDIOVASCULAR: EKG shows normal sinus rhythm with a rate of 91 beats per minute. AK interval 122, QTC 489. The patient's blood pressure is 76/59. He is receiving a second liter bolus and it is up to 93/56. ASSESSMENT 1. Septic shock. 2. IV drug abuse. 3. Bilateral pneumonia. 4. Acute respiratory failure. 5. Acute kidney injury. PLAN Admit the patient to the ICU. The patient will have a critical care consult with Dr. Martinez. Continue with IV antibiotics with Maxipime and Zithromax and steroids 40 mg q.8 h. The patient will have a urine toxicology and sputum culture, echo and if needed Levophed to keep the MAP more than 65. Continue with duo-nebs q.4 h. Follow with aseptic shock protocol with repeat lactic acid. Further recommendations to follow as more lab results are available. Dictated by Venkat Torres TD: 03/09/2017 12:22 JOB #: [id number] Unit #: [id number] #: [id number] Patient: JINA BURGOS HISTORY AND PHYSICAL Page 1 of 1 X X HISTORY AND PHYSICAL
--- NOTE | ~2017-03-09 | ST ---
Unit #: [id number] #: [id number] Patient: JINA BURGOS [id number] [facility]. [address] [place], [place] [address] [id number] I MR#: [id number] NAME: JINA BURGOS : 1970 SEX: M STUDY DATE/TIME: 03/16/2017 UNIT: [facility] ROOM: 565 STUDY DESCRIPTION: Attending Physician: Gianni Trejo M.D. Primary Care Physician: Rahul Barahona M.D. CARDIOLOGY REPORT EXAM Dobutamine Cardiolite stress test. FINDINGS Baseline EKG: Normal sinus rhythm with ventricular rate 85 beats per minute, left atrial abnormality, some borderline left ventricular hypertrophy. PROCEDURE The initial dobutamine infusion was 10 mcg/kg/min, increase every three minutes to a maximal infusion rate of 40 mcg/kg/min. The patient reached a maximum heart rate of 144 beats per minute which was 84% of maximum target heart rate. Blood pressure was 185/82 mmHg. The patient had no complaints of chest pain, palpitations, or dizziness. It was noted that patient had occasional premature atrial contraction. EKG during the test did not show any acute ischemic changes, essentially baseline except for occasional premature atrial contraction. The patient denied any chest pain, palpitations, or dizziness. Had increased shortness of breath and fatigueness and felt heart pounding but those symptoms resolved in recovery phase. Cardiolite was injected at maximum target heart rate. Radionuclide test pending. Please correlate with nuclear images. Dictated by... Jeb VillarrealPBinaRKristel for Venkat Youssef/je TD: 03/16/2017 11:54 JOB #: [id number] CARDIOLOGY REPORT Page 1 of 1 X Nithya Mendez APRN CARDIOLOGY REPORT
--- NOTE | ~2017-03-09 | EKG ---
PATIENT: JINA BURGOS UNIT #: [id number] Ventricular Rate: 91 BPM Atrial Rate: 91 BPM P-R Interval: 122 ms QRS Duration: 100 ms Q-T Interval: 398 ms QTC Calculation(Bezet): 489 ms P Lima: 46 degrees Calculated R [place]: 58 degrees Calculated T L[place]: 29 degrees Diagnosis Line: Normal sinus rhythm Diagnosis Line: Prolonged QT Baseline wander Diagnosis Line: Abnormal ECG Diagnosis Line: No previous ECGs available Diagnosis Line: Confirmed by RACQUEL ONTIVEROS MD ([id number]) on 03/12/2017 Diagnosis Line: 3:57:29 PM INTERPRETING MD: RAMA LÓPEZ
--- NOTE | ~2017-03-09 | CO ---
Unit #: [id number] #: [id number] Patient: JINA LEBRON [id number] [facility] [address] [facility]. [place], [place] [address] [id number] I MR#: [id number] NAME: JINA LEBRON ROOM: 579 Age: 47 Sex: M Admission Date: 03/09/2017 : 1970 Attending Physician: Gianni Trejo M.D. Primary Care Physician: Rahul Barahona M.D. Consultation Date: 03/13/2017 CONSULTATION REPORT REASON FOR CONSULTATION Followup. DISCUSSION Mr. Jina Lebron is a 47-year-old white male, seen in room 579, bed 1 at [facility]. The patient lying comfortably in bed, seemed anxious and nervous. The patient was admitted with pneumonia, IV drug abuse, septic shock diagnosis. The patient has bilateral pneumonia, still having problem with the anxiety. He reports medication is not helping, although the patient has Ativan 1 mg t.i.d. p.r.n. The patient was started on Ativan 0.5 mg t.i.d., Desyrel 75 mg at bedtime for sleep, Neurontin 300 mg t.i.d. The patient is anxious and nervous, but denied any suicidal or homicidal ideation. Denied any psychotic symptom. The patient's vital signs; temperature 98.7, pulse 63, respiratory rate 17, blood pressure 116/72, oxygen saturation 98%. MENTAL STATUS EXAMINATION General appearance; the patient thin built, casually dressed, lying in a propped up position receiving oxygen through nasal cannula, somewhat upset, anxious, nervous, restless. Attention span and concentration, fair. Speech, rapid in rate. Oriented in time, place, and person. Mood and affect, labile. Thought process, circumstantial. Thought content, the patient denied any suicidal or homicidal ideation. Denied any psychotic symptom. Recent and remote memory, fair. Language, intact. Fund of knowledge, fair. Insight and judgment, fair to slightly impaired. DIAGNOSES Psychiatric: Opioid use disorder, moderate, F11.20; anxiety disorder, not otherwise specified, F40.01; mood disorder, not otherwise specified, F32.9. Medical diagnosis: Please refer to H and P. ASSESSMENT/PLAN 1. Supportive psychotherapy and psychoeducation provided to the patient. 2. Educated about benefits and side effects of medication and course and prognosis of illness. 3. Advised to continue with current medication combination. If needed, consider further adjustment of medication. We will continue to follow. Please feel free to call if any questions, telephone #[phone]. Dictated by... Dario Villagomez M.D. Unit #: [id number] #: [id number] Patient: JINA LEBRON/nathaniel TD: 03/14/2017 02:44 JOB #: [id number] CONSULTATION REPORT Page 1 of 1 X Dario Villagomez MD X CONSULTATION REPORT
--- NOTE | ~2017-03-09 | DS ---
Unit #: [id number] #: [id number] Patient: JINA BURGOS [id number] [address] [place], [place] [address] [id number] I MR#: [id number] NAME: JINA BURGOS. ROOM: [facility] Age: 47 Sex: M Admission Date: 03/09/2017 : 1970 Discharge Date: 03/16/2017 Attending Physician: Gianni Trejo M.D. Primary Care Physician: Rahul Barahona M.D. DISCHARGE SUMMARY See Transfer of Care summary dictated by Dr. Juan Blair on 03/13/2017. ADDITIONAL DISCHARGE DIAGNOSIS Acute systolic heart failure. HOSPITAL COURSE The patient was taken for stress test which was noted to be normal. As a result, no cardiologic intervention was required. Over the course of his stay, the patient continued to be treated for his pneumonia and has, at this point, completed 7 days of therapy. He is saturating in the 90s on room air. Given a normal stress test and the fact that the patient no longer needs oxygen, he is being discharged at this time. Prescriptions have been written and will be filled for the patient prior to discharge. DISCHARGE MEDICATIONS 1. Lipitor 20 mg h.s. 2. Aspirin 81 mg daily. 3. Toprol tartrate 25 mg p.o. b.i.d. 4. Diltiazem CD 120 mg p.o. daily. 5. Digoxin 0.125 mg daily. 6. Neurontin 300 mg p.o. t.i.d. 7. Desyrel 50 mg p.o. h.s. 8. Prednisone taper. 9. Proventil two puffs q.4 h. p.r.n. 10. Lisinopril 5 mg p.o. daily. FOLLOWUP The patient should follow up with Dr. Garza on 05/17/2017. Dictated by... Venkat Bishop/soledad TD: 03/19/2017 17:57 JOB #: [id number] Unit #: [id number] #: [id number] Patient: JINA BURGOS DISCHARGE SUMMARY Page 1 of 1 X Gianni Trejo MD DISCHARGE SUMMARY
[2017-03-09 09:10] LABS: POC - CKMB 14.7 ng/mL (0.0-7.9); POC - TROPONIN 0.05 ng/mL (<=0.05)
[2017-03-09 09:19] LABS: BASOPHIL% 0.2 % (0-2.5); HEMATOCRIT 43.6 % (38.0-50.0); HEMOGLOBIN 13.9 gm/dL (13.0-16.0); LYMPHOCYTE# 0.9 X10e3 (1.0-3.5); LYMPHOCYTE% 14.4 % (17.0-45.0); MEAN CELL VOLUME 94.5 FL (83-96); MEAN CORPUSCULAR HEMOGLOBIN 30.2 PG (28-34); MEAN PLATELET VOLUME 8.3 FL (6.5-11.5); MONOCYTE# 0.5 X10e3 (0-1.0); MONOCYTE% 7.5 % (3.0-12.0); NEUTROPHIL# 4.8 X10e3 (1.5-7.1); NEUTROPHIL% 77.9 % (40-75); PLATELET COUNT 216 X10e3 (140-420); RED BLOOD COUNT 4.61 X10e (3.90-5.60); RED CELL DISTRIBUTION WIDTH 14.7 % (11.0-15.5); WHITE BLOOD COUNT 6.2 X10e3 (4.0-10.5)
[2017-03-09 09:22] LABS: DIFF IND NO
[2017-03-09 09:30] LABS: ARTERIAL BLD GAS O2 SATURATION 88.5 % (90.0-100.0); ARTERIAL BLOOD GAS CARBOXY HB 1.3 %sat (0.0-9.0); ARTERIAL BLOOD GAS HCO3 18.1 mmol/L; ARTERIAL BLOOD GAS MET HB 0.6 %sat (0.0-2.0); ARTERIAL BLOOD GAS PCO2 32.6 mmHg (35.0-45.0); ARTERIAL BLOOD GAS pH 7.353 (7.350-7.450)
[2017-03-09 09:31] LABS: ARTERIAL BLOOD GAS ALLEN TEST NORMAL; ARTERIAL BLOOD GAS ART SITE RIGHT RADIAL; ARTERIAL BLOOD GAS PO2 60.1 mmHg (80.0-100); ARTERIAL DRAW? YES
[2017-03-09 09:32] LABS: ARTERIAL BLOOD GAS DELIVERY NASAL CANNULA
[2017-03-09 10:14] LABS: ALBUMIN SERUM 3.7 g/dL (3.5-5.0); BILIRUBIN, DIRECT 0.1 mg/dL (0.0-0.2); BILIRUBIN,INDIRECT 0.7 mg/dL (0.0-0.9); BILIRUBIN,TOTAL 0.8 mg/dL (0.2-2.0); BUN/CREATININE RATIO 7.57; CALCIUM SERUM 8.4 mg/dL (8.4-10.2); CREATININE SERUM 3.3 mg/dL (0.6-1.4); GLOM FILT RATE Estimated 20.8 mL/min (>60); POTASSIUM 3.2 mmol/L (3.5-5.1); PROTEIN TOTAL SERUM 6.7 g/dL (6.0-8.3)
[2017-03-09 12:01] LABS: AMPHETAMINE POS (NEG); BARBITURATES NEG (NEG); BENZODIAZEPINES NEG (NEG); COCAINE NEG (NEG); MARIJUANA NEG (NEG); OPIATES POS (NEG); TRICYCLIC ANTIDEPRESSANTS NEG (NEG); U METHADONE NEG (NEG)
[2017-03-09] MEDS ORDERED: LISINOPRIL10 MG PO (12:37)
[2017-03-09] MEDS ORDERED: PROVENTIL INH0.5 ML INH (12:41)
[2017-03-10 04:54] LABS: BASOPHIL% 0.1 % (0-2.5); DIFF IND NO; HEMATOCRIT 34.2 % (38.0-50.0); LYMPHOCYTE# 0.5 X10e3 (1.0-3.5); LYMPHOCYTE% 4.1 % (17.0-45.0); MEAN CELL VOLUME 93.1 FL (83-96); MEAN CORPUSCULAR HGB CONC 32.2 g/dL (30-36); MEAN PLATELET VOLUME 8.3 FL (6.5-11.5); MONOCYTE# 0.6 X10e3 (0-1.0); MONOCYTE% 4.9 % (3.0-12.0); NEUTROPHIL# 10.4 X10e3 (1.5-7.1); NEUTROPHIL% 90.9 % (40-75); PLATELET COUNT 142 X10e3 (140-420); RED BLOOD COUNT 3.68 X10e (3.90-5.60); RED CELL DISTRIBUTION WIDTH 14.8 % (11.0-15.5); WHITE BLOOD COUNT 11.4 X10e3 (4.0-10.5)
[2017-03-10 06:57] LABS: BUN/CREATININE RATIO 18.57; CALCIUM SERUM 7.2 mg/dL (8.4-10.2); CREATININE SERUM 1.4 mg/dL (0.6-1.4); GLOM FILT RATE Estimated 58.6 mL/min (>60); POTASSIUM 4.6 mmol/L (3.5-5.1)
[2017-03-10 14:30] LABS: %MB 2.1 % (0.0-4.0); MB 18.9 ng/ml
[2017-03-10 17:07] LABS: MB 8.9 ng/ml
[2017-03-11 05:09] LABS: BASOPHIL% 0.1 % (0-2.5); DIFF IND NO; HEMATOCRIT 35.3 % (38.0-50.0); HEMOGLOBIN 11.4 gm/dL (13.0-16.0); LYMPHOCYTE# 0.5 X10e3 (1.0-3.5); LYMPHOCYTE% 4.6 % (17.0-45.0); MEAN CELL VOLUME 93.1 FL (83-96); MEAN CORPUSCULAR HGB CONC 32.3 g/dL (30-36); MEAN PLATELET VOLUME 8.8 FL (6.5-11.5); MONOCYTE# 0.6 X10e3 (0-1.0); MONOCYTE% 5.1 % (3.0-12.0); NEUTROPHIL# 9.8 X10e3 (1.5-7.1); NEUTROPHIL% 90.2 % (40-75); PLATELET COUNT 108 X10e3 (140-420); RED BLOOD COUNT 3.79 X10e (3.90-5.60); WHITE BLOOD COUNT 10.8 X10e3 (4.0-10.5)
[2017-03-11 06:01] LABS: ALBUMIN SERUM 2.6 g/dL (3.5-5.0); BILIRUBIN,TOTAL 0.4 mg/dL (0.2-2.0); BUN/CREATININE RATIO 33.33; CALCIUM SERUM 7.9 mg/dL (8.4-10.2); CREATININE SERUM 0.9 mg/dL (0.6-1.4); GLOM FILT RATE Estimated 99.9 mL/min (>60); POTASSIUM 4.4 mmol/L (3.5-5.1); PROTEIN TOTAL SERUM 5.3 g/dL (6.0-8.3)
[2017-03-12 06:51] LABS: BUN/CREATININE RATIO 37.14; CREATININE SERUM 0.7 mg/dL (0.6-1.4); GLOM FILT RATE Estimated 110.9 mL/min (>60); POTASSIUM 4.1 mmol/L (3.5-5.1)
[2017-03-13 06:11] LABS: CALCIUM SERUM 8.1 mg/dL (8.4-10.2); CREATININE SERUM 0.8 mg/dL (0.6-1.4); GLOM FILT RATE Estimated 104.9 mL/min (>60); MAGNESIUM 1.8 mg/dL (1.6-3.0); POTASSIUM 3.6 mmol/L (3.5-5.1)
[2017-03-13 19:14] LABS: BUN/CREATININE RATIO 26.66; CALCIUM SERUM 8.3 mg/dL (8.4-10.2); CREATININE SERUM 0.9 mg/dL (0.6-1.4); GLOM FILT RATE Estimated 99.9 mL/min (>60); MAGNESIUM 1.8 mg/dL (1.6-3.0); POTASSIUM 4.3 mmol/L (3.5-5.1)
[2017-03-13 19:36] LABS: %MB 2.9 % (0.0-4.0)
[2017-03-14 01:36] LABS: %MB 3.1 % (0.0-4.0); MB 2.5 ng/ml
[2017-03-14 06:20] LABS: HEMATOCRIT 32.1 % (38.0-50.0); HEMOGLOBIN 10.3 gm/dL (13.0-16.0); MEAN CORPUSCULAR HEMOGLOBIN 29.9 PG (28-34); MEAN CORPUSCULAR HGB CONC 32.1 g/dL (30-36); RED BLOOD COUNT 3.46 X10e (3.90-5.60); RED CELL DISTRIBUTION WIDTH 15.3 % (11.0-15.5); WHITE BLOOD COUNT 14.5 X10e3 (4.0-10.5)
[2017-03-14 06:42] LABS: CK TOTAL 57 IU/L (36-174)
[2017-03-14 06:54] LABS: BUN/CREATININE RATIO 34.28; CALCIUM SERUM 7.7 mg/dL (8.4-10.2); CREATININE SERUM 0.7 mg/dL (0.6-1.4); GLOM FILT RATE Estimated 110.9 mL/min (>60); MAGNESIUM 1.9 mg/dL (1.6-3.0); POTASSIUM 3.9 mmol/L (3.5-5.1)
[2017-03-15 06:37] LABS: BUN/CREATININE RATIO 32.85; CREATININE SERUM 0.7 mg/dL (0.6-1.4); GLOM FILT RATE Estimated 110.9 mL/min (>60); MAGNESIUM 1.9 mg/dL (1.6-3.0); POTASSIUM 4.8 mmol/L (3.5-5.1)
[2017-03-16 06:09] LABS: BUN/CREATININE RATIO 37.14; CALCIUM SERUM 8.2 mg/dL (8.4-10.2); CREATININE SERUM 0.7 mg/dL (0.6-1.4); GLOM FILT RATE Estimated 110.9 mL/min (>60); MAGNESIUM 1.9 mg/dL (1.6-3.0); POTASSIUM 4.3 mmol/L (3.5-5.1)
[2017-03-16] MEDS ORDERED: MEDROL PO (15:10)
[2017-03-16] MEDS ORDERED: DESYREL50 MG PO (15:12)
[2017-03-16] MEDS ORDERED: NEURONTIN300 MG PO (15:12)
[2017-03-16] MEDS ORDERED: NICOTINE1 EAC1 TD (15:14)
[2017-03-16] MEDS ORDERED: LANOXIN125 MCG PO (15:16)
[2017-03-16] MEDS ORDERED: DILTIAZEM 24HR120 M1 PO (15:17)
[2017-03-16] MEDS ORDERED: METOPROLOL TAR25 MG PO (15:18)
[2017-03-16] MEDS ORDERED: LIPITOR20 MG PO (15:21)
[2017-03-16] MEDS ORDERED: ASPIRIN81 MG PO (15:21)
== END 2017-03-16 16:56 | disposition home or self-care (01) | DRG 871 ==
LOC: CED 08:30 → CEDOF 11:23 → C5C 11:23 → CICCU3 11:23 → C5C 03-10 11:09
PROVIDERS: Emergency Medicine; Internal Medicine; Nurse Practitioner Family; Physician Assistant
DX: A41.9 Sepsis, unspecified organism (principal); J18.9 Pneumonia, unspecified organism; J96.01 Acute respiratory failure with hypoxia; R65.21 Severe sepsis with septic shock; I50.23 Acute on chronic systolic (congestive) heart failure; N17.9 Acute kidney failure, unspecified; I11.0 Hypertensive heart disease with heart failure; I42.9 Cardiomyopathy, unspecified; F11.20 Opioid dependence, uncomplicated; J44.0 Chronic obstructive pulmonary disease with (acute) lower respiratory infection; J44.1 Chronic obstructive pulmonary disease with (acute) exacerbation; M62.82 Rhabdomyolysis; E87.1 Hypo-osmolality and hyponatremia; E44.0 Moderate protein-calorie malnutrition; F39 Unspecified mood [affective] disorder; F10.21 Alcohol dependence, in remission; F17.210 Nicotine dependence, cigarettes, uncomplicated; Z82.49 Family history of ischemic heart disease and other diseases of the circulatory system; Z59.0 Homelessness; F40.01 Agoraphobia with panic disorder; R07.89 Other chest pain
CPT/HCPCS: 36415; 36600; 71010; 71250; 78452; 80048; 80053; 80061; 80076; 80307; 82308; 82550; 82553; 82803; 82947; 83605; 83735; 83880; 84484; 85025; 85027; 87040; 87070; 87205; 93005; 93017; 93306; 94640; 94760; 94762; 96365; 96367; 96375; 99291; A9500; J0282; J0360; J0456; J0692; J0696; J1160; J1250; J1650; J1815; J1940; J2543; J2920; J2930; J3260

== ENCOUNTER 2017-04-01 01:07 | Emergency (ER) | payer OTHER ==
--- NOTE | ~2017-04-01 | CR72 ---
[facility] A Service of [facility] & [facility] RADIOLOGY TEXT RESULTS PATIENT: JINA BURGOS LOCATION: [facility] : [birth year] UNIT #: [id number] AGE: [address]: Chris Kc MD SEX: M ORDER DR: [id number] [facility] [address] [place], [place] [address] [id number] E MR#: [id number] Acc #: [id number] NAME: JINA BURGOS : 1970 SEX: M STUDY DATE/TIME: 04/01/2017 1:59 UNIT: [facility] ROOM: STUDY DESCRIPTION: CR Chest Single View Portable Attending Physician: Diogenes Kc M.D. Ordering Physician: Ed Doctor [id number] [facility] Primary Care Physician: Rahul Barahona M.D. MEDICAL IMAGING REPORT This report is preliminary unless electronic signature is present EXAM Portable chest INDICATION Chest pain since last week. PROCEDURE Frontal view chest COMPARISON 03/09/2017 FINDINGS Heart size is unchanged. Previously demonstrated patchy opacities have improved. No dense consolidation, pleural fluid or pneumothorax. IMPRESSION No dense consolidation. Improvement in patchy opacities in both lungs shown on 03/09/2017. Dictated by... Diogenes Davis M.D. THIS IS AN ELECTRONICALLY VERIFIED REPORT Diogenes Davis M.D. at 04/01/2017 9:56 PM ED/lyndsay TD: 04/01/2017 09:35 JOB #: [id number] MEDICAL IMAGING REPORT Page 1 of 1 COPY
--- NOTE | ~2017-04-01 | EKG ---
PATIENT: JINA BURGOS UNIT #: [id number] Ventricular Rate: 83 BPM Atrial Rate: 83 BPM P-R Interval: 120 ms QRS Duration: 96 ms Q-T Interval: 372 ms QTC Calculation(Bezet): 437 ms P Cooper: 45 degrees Calculated R Cooper: 33 degrees Calculated T Cooper: 35 degrees Diagnosis Line: Normal sinus rhythm Diagnosis Line: Nonspecific ST abnormality Diagnosis Line: Abnormal ECG Diagnosis Line: When compared with ECG of 15-MAR-2017 05:46, Diagnosis Line: Non-specific change in ST segment in Anterior Diagnosis Line: leads Diagnosis Line: T wave amplitude has increased in Anterolateral Diagnosis Line: leads Diagnosis Line: Confirmed by FLACO LING MD ([id number]) on Diagnosis Line: 04/04/2017 3:14:13 PM INTERPRETING MD: ANURADHA LÓPEZ
[~2017-04-01 01:07] MED LIST changes: +ASPIRIN81 MG PO; +DESYREL50 MG PO; +DILTIAZEM 24HR120 M1 PO; +LANOXIN125 MCG PO; +LIPITOR20 MG PO; +LISINOPRIL10 MG PO; +MEDROL PO; +METOPROLOL TAR25 MG PO; +NEURONTIN300 MG PO; +NICOTINE1 EAC1 TD; +PROVENTIL INH0.5 ML INH
[2017-04-01 03:13] LABS: POC - CKMB 1.9 ng/mL (0.0-7.9); POC - TROPONIN <0.05 ng/mL (<=0.05)
[2017-04-01 03:33] LABS: BASOPHIL# 0.1 X10e3 (0-0.3); BASOPHIL% 0.6 % (0-2.5); DIFF IND NO; EOSINOPHIL# 0.1 X10e3 (0-0.7); EOSINOPHIL% 0.8 % (0.0-7.0); HEMATOCRIT 34.7 % (38.0-50.0); HEMOGLOBIN 11.2 gm/dL (13.0-16.0); LYMPHOCYTE# 2.4 X10e3 (1.0-3.5); LYMPHOCYTE% 25.5 % (17.0-45.0); MEAN CELL VOLUME 94.1 FL (83-96); MEAN CORPUSCULAR HEMOGLOBIN 30.2 PG (28-34); MEAN CORPUSCULAR HGB CONC 32.1 g/dL (30-36); MEAN PLATELET VOLUME 7.3 FL (6.5-11.5); MONOCYTE# 0.9 X10e3 (0-1.0); NEUTROPHIL# 6.1 X10e3 (1.5-7.1); NEUTROPHIL% 64.1 % (40-75); PLATELET COUNT 168 X10e3 (140-420); RED BLOOD COUNT 3.69 X10e (3.90-5.60); RED CELL DISTRIBUTION WIDTH 15.3 % (11.0-15.5); WHITE BLOOD COUNT 9.5 X10e3 (4.0-10.5)
[2017-04-01 03:54] LABS: CALCIUM SERUM 8.4 mg/dL (8.4-10.2); CREATININE SERUM 1.1 mg/dL (0.6-1.4); GLOM FILT RATE Estimated 78.4 mL/min (>60); POTASSIUM 3.7 mmol/L (3.5-5.1)
[2017-04-01 04:52] LABS: POC - CKMB 2.1 ng/mL (0.0-7.9); POC - TROPONIN <0.05 ng/mL (<=0.05)
== END 2017-04-01 05:45 | disposition home or self-care (01) ==
LOC: CED 01:07
PROVIDERS: Emergency Medicine
DX: R07.89 Other chest pain (principal); F19.10 Other psychoactive substance abuse, uncomplicated; I10 Essential (primary) hypertension; J44.9 Chronic obstructive pulmonary disease, unspecified; F17.210 Nicotine dependence, cigarettes, uncomplicated; Z98.890 Other specified postprocedural states; Z79.899 Other long term (current) drug therapy; Z79.82 Long term (current) use of aspirin
CPT/HCPCS: 36415; 71010; 80048; 82553; 84484; 85025; 93005; 99284

== ENCOUNTER 2017-04-13 15:54 | Emergency (ER) | payer OTHER ==
--- NOTE | ~2017-04-13 | EKG ---
PATIENT: JINA BURGOS UNIT #: [id number] Ventricular Rate: 74 BPM Atrial Rate: 74 BPM P-R Interval: 126 ms QRS Duration: 102 ms Q-T Interval: 398 ms QTC Calculation(Bezet): 441 ms P Hull: 63 degrees Calculated R Hull: 57 degrees Calculated T Hull: 67 degrees Diagnosis Line: Normal sinus rhythm Diagnosis Line: Incomplete right bundle branch block Diagnosis Line: Nonspecific T wave abnormality Diagnosis Line: Abnormal ECG Diagnosis Line: When compared with ECG of 01-APR-2017 01:12, Diagnosis Line: Nonspecific T wave abnormality, worse in Anterior Diagnosis Line: leads Diagnosis Line: Confirmed by EM BARBER MD ([id number]) on 04/13/2017 Diagnosis Line: 6:59:26 PM INTERPRETING MD: ELISABETH LÓPEZ
--- NOTE | ~2017-04-13 | CR72 ---
[facility] A Service of [facility] & [facility] RADIOLOGY TEXT RESULTS PATIENT: JINA BURGOS LOCATION: [facility] : [birth year] UNIT #: [id number] AGE: [address]: Devaughn Vanegas MD SEX: M ORDER DR: [id number] [facility] [address] [place], [place] [address] [id number] E MR#: [id number] Acc #: [id number] NAME: JINA BURGOS : 1970 SEX: M STUDY DATE/TIME: 04/13/2017 16:57 UNIT: [facility] ROOM: STUDY DESCRIPTION: CR Chest Single View Portable Attending Physician: Devaughn Vanegas M.D. Ordering Physician: Bruce Mason D.O. Primary Care Physician: Rahul Barahona M.D. MEDICAL IMAGING REPORT This report is preliminary unless electronic signature is present EXAM Portable chest HISTORY Shortness of air for 1 month. Right-side chest pain and arm pain. FINDINGS The cardiac size and pulmonary vascularity are normal. No infiltrates or effusions. Older healing bilateral rib fractures, lateral right fourth rib and anterior left fifth rib. IMPRESSION No acute findings. No active disease. Dictated by... García Ellis M.D. THIS IS AN ELECTRONICALLY VERIFIED REPORT García Ellis M.D. at 04/13/2017 10:54 PM DFL/pcl TD: 04/13/2017 20:23 JOB #: [id number] MEDICAL IMAGING REPORT Page 1 of 1 COPY
--- NOTE | ~2017-04-13 | NM69 ---
[facility] A Service of [facility] & [facility] RADIOLOGY TEXT RESULTS PATIENT: JIAN BURGOS LOCATION: [facility] : [birth year] UNIT #: [id number] AGE: [address]: Devaughn Vanegas MD SEX: M ORDER DR: [id number] [facility] [address] [place], [place] [address] [id number] E MR#: [id number] Acc #: [id number] NAME: JINA BURGOS : 1970 SEX: M STUDY DATE/TIME: 04/13/2017 20:42 UNIT: [facility] ROOM: STUDY DESCRIPTION: NM Pulm Vent and Perf Attending Physician: Devaughn Vanegas M.D. Ordering Physician: Bruce Mason D.O. Primary Care Physician: Rahul Barahona M.D. MEDICAL IMAGING REPORT This report is preliminary unless electronic signature is present EXAM Ventilation-perfusion scan INDICATIONS Shortness of air, chest pain since this morning. PROCEDURE Ventilation images obtained after inhalation 36 mCi technetium labeled DTPA aerosol. Perfusion images obtained after 5.9 mCi technetium labeled MAA. COMPARISON 04/13/17 FINDINGS No ventilation-perfusion mismatch. IMPRESSION Negative. No evidence for pulmonary embolus. Dictated by... Diogenes Davis M.D. THIS IS AN ELECTRONICALLY VERIFIED REPORT Diogenes Davis M.D. at 04/14/2017 3:08 PM EED/psc TD: 04/13/2017 22:42 JOB #: [id number] MEDICAL IMAGING REPORT Page 1 of 1 COPY
[2017-04-13 17:09] LABS: BASOPHIL# 0.1 X10e3 (0-0.3); EOSINOPHIL# 0.1 X10e3 (0-0.7); EOSINOPHIL% 0.7 % (0.0-7.0); HEMATOCRIT 35.7 % (38.0-50.0); HEMOGLOBIN 11.4 gm/dL (13.0-16.0); LYMPHOCYTE# 2.7 X10e3 (1.0-3.5); LYMPHOCYTE% 24.3 % (17.0-45.0); MEAN CELL VOLUME 93.3 FL (83-96); MEAN CORPUSCULAR HEMOGLOBIN 29.7 PG (28-34); MEAN CORPUSCULAR HGB CONC 31.9 g/dL (30-36); MEAN PLATELET VOLUME 7.4 FL (6.5-11.5); MONOCYTE# 1.2 X10e3 (0-1.0); MONOCYTE% 10.7 % (3.0-12.0); NEUTROPHIL% 63.3 % (40-75); PLATELET COUNT 268 X10e3 (140-420); RED BLOOD COUNT 3.83 X10e (3.90-5.60); RED CELL DISTRIBUTION WIDTH 15.2 % (11.0-15.5); WHITE BLOOD COUNT 11.1 X10e3 (4.0-10.5)
[2017-04-13 17:11] LABS: DIFF IND NO
[2017-04-13 17:16] LABS: POC - CKMB 2.3 ng/mL (0.0-7.9); POC - TROPONIN <0.05 ng/mL (<=0.05)
[2017-04-13 17:26] LABS: PARTIAL THROMBOPLASTIN TIME 29.5 SECONDS (23.5-31.3); PROTHROMBIN TIME (PATIENT) 10.5 SECONDS (9.6-11.5)
[2017-04-13 17:33] LABS: ALBUMIN SERUM 3.7 g/dL (3.5-5.0); BILIRUBIN, DIRECT 0.1 mg/dL (0.0-0.2); BILIRUBIN,INDIRECT 0.9 mg/dL (0.0-0.9); CALCIUM SERUM 8.7 mg/dL (8.4-10.2); CREATININE SERUM 1.8 mg/dL (0.6-1.4); GLOM FILT RATE Estimated 43.2 mL/min (>60); POTASSIUM 3.5 mmol/L (3.5-5.1); PROTEIN TOTAL SERUM 6.5 g/dL (6.0-8.3)
[2017-04-13 19:56] LABS: POC - CKMB 1.7 ng/mL (0.0-7.9); POC - TROPONIN <0.05 ng/mL (<=0.05)
== END 2017-04-13 22:05 | disposition home or self-care (01) ==
LOC: CED 15:54
PROVIDERS: Emergency Medicine
DX: J44.1 Chronic obstructive pulmonary disease with (acute) exacerbation (principal); E78.5 Hyperlipidemia, unspecified; I10 Essential (primary) hypertension; Z79.899 Other long term (current) drug therapy; Z79.82 Long term (current) use of aspirin
CPT/HCPCS: 36415; 71010; 78582; 80048; 80076; 80162; 82553; 83880; 84484; 85025; 85379; 85610; 85730; 93005; 94640; 96374; 99284; A9540; A9567; J2930

== ENCOUNTER 2017-05-08 11:55 | Emergency (ER) | payer MEDICARE ==
--- NOTE | ~2017-05-08 | EKG ---
PATIENT: JINA BURGOS UNIT #: [id number] Ventricular Rate: 88 BPM Atrial Rate: 88 BPM P-R Interval: 118 ms QRS Duration: 102 ms Q-T Interval: 386 ms QTC Calculation(Bezet): 467 ms P Pais[place]: 58 degrees Calculated R [place]: 56 degrees Calculated T [place]: 43 degrees Diagnosis Line: Normal sinus rhythm Diagnosis Line: Normal ECG Diagnosis Line: When compared with ECG of 13-APR-2017 16:34, Diagnosis Line: Nonspecific T wave abnormality no longer evident Diagnosis Line: in Anterior leads Diagnosis Line: Confirmed by RACQUEL ONTIVEROS MD ([id number]) on 05/09/2017 Diagnosis Line: 3:28:29 PM INTERPRETING MD: RAMA LÓPEZ
--- NOTE | ~2017-05-08 | CR72 ---
[facility] A Service of [facility] RADIOLOGY TEXT RESULTS PATIENT: JINA BURGOS LOCATION: [facility] : [birth year] UNIT #: [id number] AGE: [address]: Devaughn Vanegas MD SEX: M ORDER DR: [id number] [facility] [address] [place], [place] [address] [id number] E MR#: [id number] Acc #: [id number] NAME: JINA BURGOS. : 1970 SEX: M STUDY DATE/TIME: 05/08/2017 14:07 UNIT: [facility] ROOM: STUDY DESCRIPTION: CR Chest Single View Portable Attending Physician: Devaughn Vanegas M.D. Ordering Physician: Devaughn Vanegas M.D. Primary Care Physician: Wero Alcaraz M.D. MEDICAL IMAGING REPORT This report is preliminary unless electronic signature is present EXAM Portable chest 05/08 INDICATIONS Bilateral foot swelling with shortness of air and chest pain for 2 weeks. TECHNIQUE AP portable chest compared with 04/13/2017. FINDINGS Cardiac and mediastinal contours are normal. The lungs are clear, except for some linear atelectasis at the left base. No pneumothorax. There are left anterolateral, at least fourth and fifth subacute rib fractures. IMPRESSION 1. Left anterolateral views fourth and fifth subacute rib fractures. 2. The lungs are clear, except for some minimal linear atelectasis at the left base. 3. No pneumothorax. Dictated by... Jesse Jamil Jr., M.D. THIS IS AN ELECTRONICALLY VERIFIED REPORT Jesse Jamil Jr., M.D. at 05/10/2017 7:21 AM MYA/brandy TD: 05/09/2017 06:36 JOB #: [id number] MEDICAL IMAGING REPORT [facility] A Service of [facility] RADIOLOGY TEXT RESULTS PATIENT: JINA BURGOS LOCATION: [facility] : [birth year] UNIT #: [id number] AGE: [address]: Devaughn Vanegas MD SEX: M ORDER DR: Page 1 of 1 COPY
[2017-05-08 14:13] LABS: BASOPHIL# 0.1 X10e3 (0-0.3); BASOPHIL% 0.7 % (0-2.5); EOSINOPHIL# 0.1 X10e3 (0-0.7); EOSINOPHIL% 0.9 % (0.0-7.0); HEMATOCRIT 38.2 % (38.0-50.0); HEMOGLOBIN 12.4 gm/dL (13.0-16.0); LYMPHOCYTE# 1.4 X10e3 (1.0-3.5); LYMPHOCYTE% 12.9 % (17.0-45.0); MEAN CORPUSCULAR HEMOGLOBIN 30.1 PG (28-34); MEAN CORPUSCULAR HGB CONC 32.4 g/dL (30-36); MEAN PLATELET VOLUME 7.8 FL (6.5-11.5); MONOCYTE% 8.7 % (3.0-12.0); NEUTROPHIL# 8.6 X10e3 (1.5-7.1); NEUTROPHIL% 76.8 % (40-75); PLATELET COUNT 234 X10e3 (140-420); RED BLOOD COUNT 4.11 X10e (3.90-5.60); RED CELL DISTRIBUTION WIDTH 15.6 % (11.0-15.5); WHITE BLOOD COUNT 11.2 X10e3 (4.0-10.5)
[2017-05-08 14:16] LABS: DIFF IND NO
[2017-05-08 14:23] LABS: POC - CKMB 2.1 ng/mL (0.0-7.9); POC - TROPONIN <0.05 ng/mL (<=0.05)
[2017-05-08 14:35] LABS: ALBUMIN SERUM 4.4 g/dL (3.5-5.0); BILIRUBIN, DIRECT 0.1 mg/dL (0.0-0.2); BILIRUBIN,INDIRECT 0.7 mg/dL (0.0-0.9); BILIRUBIN,TOTAL 0.8 mg/dL (0.2-2.0); BUN/CREATININE RATIO 24.44; CREATININE SERUM 0.9 mg/dL (0.6-1.4); GLOM FILT RATE Estimated 99.9 mL/min (>60); POTASSIUM 3.5 mmol/L (3.5-5.1); PROTEIN TOTAL SERUM 7.5 g/dL (6.0-8.3)
== END 2017-05-08 15:10 | disposition home or self-care (01) ==
LOC: CED 11:55
PROVIDERS: Emergency Medicine
DX: R60.0 Localized edema (principal); R06.02 Shortness of breath; I11.0 Hypertensive heart disease with heart failure; I50.9 Heart failure, unspecified; J44.9 Chronic obstructive pulmonary disease, unspecified; F17.200 Nicotine dependence, unspecified, uncomplicated
CPT/HCPCS: 36415; 71010; 80048; 80076; 82553; 83880; 84484; 85025; 93005; 99284